=== PATIENT | female | born 1980 | race Caucasian/White ===

== ENCOUNTER 2016-08-10 12:05 | Inpatient (IN) | payer OTHER, MEDICAID ==
[~2016-08-10] VITALS: Ht 165.1 cm; Wt 125.2 kg
[~2016-08-10 12:05] MED LIST: AUGMENTIN 875-1 EACH PO; MIRALAX17 GM/PACK PO; MOTRIN 400MG.400 MG PO; PERCOCET 5/3251 EACH PO
[2016-08-10 12:30] VITALS: BP 153/93
[2016-08-10 13:00] VITALS: BP 153/93
--- NOTE | 2016-08-10 13:18 | ACUTE CARE PROGRESS NOTE (QUA) ---
Progress Notes Subjective Date 08/10/16 Time 1313 Note She ruptured her membranes at home this morning around 11:00. She was in bed and she said she rolled over and began leaking fluid. She went to the bathroom and continued to leak. On examination here she is grossly ruptured. She's had a previous section and was scheduled for another section at the end of this month. As result of that we will go ahead with a this afternoon. She is 36 and 3 weeks gestational age. We discussed the risks of surgery that includes bleeding, infection, injuries to the bowel and bladder. We discussed the rare risk of DVT and the need for DVT prophylaxis. We discussed the possibility that the baby may need to be transferred as result of its early gestational age and the TTN. All questions were answered and consents were signed. Patient/family reports: no complaints Objective Findings Last VS-Temp: B/P: Pulse: Resp: SaO2: Last weight lbs: oz: Kg: Method:Stated Membranes are grossly ruptured Exam General appearance: normal appearance, alert, awake, no acute distress Reviewed: vital signs, lab results Assessment/Plan Problem List 1. Previous section complicating , with delivery 2. Rupture, membranes, premature Patient condition Stable Plan: continue current care, we will go ahead and perform a this afternoon. This inpt stay is expected to cross 2 MNs from start of care Yes Comments: She has not had anything to eat or drink since last night. We will go ahead and perform a for spontaneous rupture of membranes early at 36 weeks. We will also perform a tubal ligation. Consents have been signed and risks have been discussed. at 1313
[2016-08-10 13:25] LABS: HEMOGLOBIN 10.3 g/dL (12.2-16.2); LYMPH # 0.9 K/mm3 (0.7-4.5); LYMPH % 15.6 % (10-50.0)
[2016-08-10 13:56] LABS: ABO BLOOD TYPE O; RH BLOOD TYPE POSITIVE
--- NOTE | 2016-08-10 14:59 | Operative Note ---
Procedure/Operative Record Procedure Date of procedure: 08/10/16 Pre-Op Dx: premature rupture of the membranes, previous classical section, desire for sterilization Post-Op Dx: Same Procedure performed: Repeat lower segment transverse section and bilateral salpingectomy Surgeon: Dr. Ari Bourgeois Hand Upper And Bottom Lacer(s): Dr. Horne Anesthesia: Alex Izquierdo EBL (ml): 600 Clinical note: She is a 36-year-old 3 para 1 aborta 1 who was 36 weeks and 3 days gestational age. She ruptured her membranes at home and was leaking copious amounts of fluid. She's had a previous classical section and as a result of that was offered repeat lower segment transverse section. She also expressed a desire for sterilization. The risks and benefits of surgery were discussed with the patient and her prior to surgery. The irreversibility of tubal ligation was also discussed. Operative findings: She delivered a live-born male child at 2:16 PM in the afternoon of August 10, 2015. The baby was a liveborn male child with Apgars of 8 at 1 minute and 8 at 5 minutes. PH was 7.26. There were adhesions of the omentum to the anterior peritoneum and the LEFT tube as well was adherent to the peritoneum. The rest the pelvis appeared normal. The ovaries appeared normal. Operative note: She was taken to the operating room where epidural anesthesia was found be adequate. She was prepped and draped in normal sterile fashion in the supine position with a leftward tilt. A Silva catheter was in the bladder. A Pfannenstiel skin incision was made with knife then carried through to the underlying layer of fascia with cautery. The fascia was opened in the midline with cautery and extended laterally using Rosenbaum scissors. Prentice clamps were applied to the superior aspect of the fascial incision which was tented up and the underlying rectus muscles dissected off using cautery. The Prentice clamps were then applied to the inferior aspect of the fascial incision which in a similar fashion was tented up and the underlying rectus muscles dissected off using cautery. The rectus muscles were then in the midline, the peritoneum identified, and entered sharply with Metzenbaum scissors. There were some adhesions of the omentum to the peritoneum and this was taken down at the time we took down the peritoneum to the level of the bladder. This incision was then extended superiorly and inferiorly with cautery. We had good visualization of the bladder inferiorly. The bladder peritoneum was then opened in the midline and extended laterally using Metzenbaum scissors. A bladder flap was created digitally. The lower blade of the Sara was inserted so as to push the bladder out of the way. Transverse incision was made through the uterine muscle to the amnion. This incision was then extended laterally using fingers traction. The amnion was entered sharply with knife. The 's head was then delivered atraumatically. This was followed by the anterior shoulder and the rest of the 's body atraumatically. The oropharynx and nasopharynx were bulb suctioned. The infant was then handed off to Dr. Ovalles who assigned Apgars of 8 at 1 minute and 8 at 5 minutes. We then obtained cord blood as well as cord pH. The pH was 7.26. Using gentle traction on the cord and countertraction on the fundus I was able to easily deliver the placenta intact. It had a normal three-vessel cord. The uterus was then cleared of clots and debris and exteriorized from the abdominal cavity. The uterine incision was then closed using running 0 Vicryl suture in a locked fashion. A second layer of the same suture was used to imbricate the first layer. The bladder peritoneum was then closed using running 2-0 Vicryl suture in a locked fashion. We then performed a bilateral stopping injected a. I grasped the RIGHT tube at its fimbriated end and using the widest part of the cautery blade I cauterized along the meso salpinx. The tube was then clamped close to the cornua and the tube was removed. The base of the tube was then tied with 2-0 Vicryl suture. This was similarly performed on the patient's LEFT side. The gutters and cul-de- sac were then cleared of clots and debris and the uterus was returned the abdominal cavity. Once again hemostasis was assured. We then placed 2 large pieces of Interceed along the bladder flap. The peritoneum was grasped with [place] clamps and closed using running 2-0 Vicryl suture. The rectus muscles were then reapproximated using running 0 Vicryl suture. The fascia was closed using running #1 Vicryl suture. The subcutaneous tissues were then irrigated with warm water followed by closure Ajne's fascia using running 2-0 Monocryl suture. The skin was closed with kathleen. Sterile dressings were applied. She tolerated the procedure well and was taken to the recovery room in excellent condition. All sponges minute and needle counts were correct. Estimate a blood loss was approximately 600 mL. Conplications: None Specimens: Products of conception and bilateral fallopian tubes. at 7072
[2016-08-10 15:45] VITALS: BP 128/60
[2016-08-10 17:42] LABS: URINE BILIRUBIN - DIPSTICK NEGATIVE (NEG); URINE BLOOD NEGATIVE (NEG)
[2016-08-10 17:51] LABS: URINE SQUAMOUS CELLS OCC #/hpf (0-5)
[2016-08-10] MEDS ORDERED: METHYLDOPA250 MG PO (20:22)
[2016-08-11 06:49] LABS: HEMOGLOBIN 8.4 g/dL (12.2-16.2)
--- NOTE | 2016-08-11 08:23 | ACUTE CARE PROGRESS NOTE (QUA) ---
Progress Notes Subjective Date 08/11/16 Time 0821 Note She is doing well on her first postoperative day. She is eating and drinking and ambulating. Her pain is reasonably well-controlled. She denies any shortness of breath, chest pain or calf tenderness. Patient/family reports: feeling better, no complaints Objective Findings Last VS-Temp:97.1 B/P:133/69 Pulse:84 Resp:18 SaO2:100 ROOM AIR Last weight lbs:276 oz:0 K.193 Method:Stated Laboratory Tests 08/11/16 0615: Hgb 8.4 L, Hct 26.5 L 08/10/16 1355: Urine Color YELLOW, Urine Appearance CLEAR, Urine pH 6.0, Ur Specific [place] 1.025, Urine Protein NEGATIVE, Urine Ketones 1+ H, Urine Blood NEGATIVE, Urine Nitrate NEGATIVE, Urine Bilirubin NEGATIVE, Urine Urobilinogen 0.2, Ur Leukocyte Esterase NEGATIVE, Urine RBC OCC, Urine WBC OCC, Ur Squamous Epith Cells OCC, Urine Mucus 2+, Urine Glucose NEGATIVE 08/10/16 1300: Cord Blood pH 7.26 L 08/10/16 1245: MCH 27.5 08/10/16 1245: WBC 5.9, RBC 3.75 L, Hgb 10.3 L, Hct 31.1 L, MCV 82.8, RDW 16.4, Plt Count 149, MPV 11.3 H, Gran % 80.1 H, Gran # 4.8, Lymphocytes % 15.6, Monocytes % 3.1, Eosinophils % 1.0, Basophils % 0.1, Lymphocytes # 0.9, Monocytes # 0.2, Eosinophils # 0.1, Basophils # 0.0, PUBS MCHC 33.2, Antibody Screen NEGATIVE, Miscellaneous Test POSITIVE 08/10/16 1218: Membrane Rupture POSITIVE- RUPTURED Exam General appearance: normal appearance, alert, awake, no acute distress Eyes: normal exam ENT: normal exam Neck: normal inspection Respiratory: normal exam, no respiratory distress ABD: normal exam, non-distended Genitourinary: normal voiding & quantity Skin: normal exam, normal color Reviewed: vital signs, lab results Assessment/Plan Problem List 1. Previous section complicating , with delivery 2. Rupture, membranes, premature Patient condition Improving, Stable Plan: continue current care This inpt stay is expected to cross 2 MNs from start of care Yes Comments: She is doing well this morning. We'll plan to send her home in 48 hours. at 0875
--- NOTE | 2016-08-11 10:47 | PHARMACY CLINIC NOTE ---
Patient Demographics Patient Demographics Admission date: 08/10/16 Date: 08/11/16 Time: 1047 Allergies Coded Allergies: No Known Drug Allergies (08/10/16) HEIGHT- FT: 5 IN: 5.00 K.193 VTE General Information Labs: Laboratory Tests 08/11 08/10 0615 1245 Hematology Hgb (12.2 - 16.2 g/dL) 8.4 L 10.3 L Hct (37.0 - 47.0 %) 26.5 L 31.1 L Plt Count (142 - 424 K/mm3) 149 Disclaimer The following section includes nursing documentation that has been pulled in for pharmacy review. VTE prophylaxis NQF [id number] VTE prophylaxis ordered? Yes Type of prophylaxis/treatment: ICD at 1041
[2016-08-11 21:14] VITALS: BP 113/75
--- NOTE | 2016-08-12 07:39 | ACUTE CARE PROGRESS NOTE (QUA) ---
Progress Notes Subjective Date 08/12/16 Time 0738 Note She continues to do very well. She is eating and drinking and ambulating. She is bottlefeeding. Her lochia is normal. Her pain is well-controlled. She denies any shortness of breath, calf pain or chest pain. Patient/family reports: feeling better, no complaints Objective Findings Last VS-Temp:98.0 B/P:113/75 Pulse:84 Resp:20 SaO2:100 ROOM AIR Last weight lbs:276 oz:0 K.193 Method:Stated Exam General appearance: normal appearance, alert, awake, no acute distress Reviewed: vital signs, lab results Assessment/Plan Problem List 1. Previous section complicating , with delivery 2. Rupture, membranes, premature Patient condition Improving, Stable Plan: continue current care This inpt stay is expected to cross 2 MNs from start of care Yes Comments: She continues to do very well post operatively and we will plan to send her home tomorrow. at 0708
[2016-08-12 08:30] VITALS: BP 131/80
[2016-08-12 20:29] VITALS: BP 139/78
--- NOTE | 2016-08-13 07:44 | ACUTE CARE PROGRESS NOTE (QUA) ---
Progress Notes Subjective Date 08/13/16 Time 0742 Note She is doing well this morning. She is eating and drinking and ambulating. She is had a bowel movement. Her pain is well-controlled. Patient/family reports: feeling better, no complaints Objective Findings Last VS-Temp:98.3 B/P:139/78 Pulse:116 Resp:22 SaO2:100 ROOM AIR Last weight lbs:276 oz:0 K.193 Method:Stated Exam General appearance: normal appearance, alert, awake, no acute distress Reviewed: vital signs, lab results Assessment/Plan Problem List 1. Previous section complicating , with delivery 2. Rupture, membranes, premature Patient condition Improving, Stable Plan: continue current care, initiate discharge plan This inpt stay is expected to cross 2 MNs from start of care Yes Comments: She is doing very well this morning we'll plan to send her home today. at 0743
--- NOTE | 2016-08-13 07:46 | Discharge Summary ---
Discharge Summary Admission date: 08/10/16 Discharge date: 08/13/16 Discharge diagnoses: premature rupture the membranes. Previous section. Desire for sterilization. Clinical note: She is a 36-year-old 3 now para 2 aborta 1 who was 36 weeks gestational age. She ruptured her membranes at home and came in to labor and delivery. She's had a previous section and as result of that was offered repeat lower segment transverse section. She also expressed desire for sterilization. We performed a bilateral salpingectomy. Course in hospital: On August 10, 2015 she underwent a repeat lower segment transverse section and bilateral salpingectomy. She has done well and has remained afebrile throughout her hospitalization. She is eating and drinking and ambulating. She delivered a live-born male child at 2:16 PM in the afternoon of August 10, 2016. The baby weighed 7 lbs. 3 oz. with Apgars of 8 at 1 minute and 8 at 5 minutes. He was 19 inches long. She has O positive blood, she is rubella immune and was group B streptococcus negative. Laboratory Tests 08/11/16 0615: Hgb 8.4 L, Hct 26.5 L 08/10/16 1355: Urine Color YELLOW, Urine Appearance CLEAR, Urine pH 6.0, Ur Specific [place] 1.025, Urine Protein NEGATIVE, Urine Ketones 1+ H, Urine Blood NEGATIVE, Urine Nitrate NEGATIVE, Urine Bilirubin NEGATIVE, Urine Urobilinogen 0.2, Ur Leukocyte Esterase NEGATIVE, Urine RBC OCC, Urine WBC OCC, Ur Squamous Epith Cells OCC, Urine Mucus 2+, Urine Glucose NEGATIVE 08/10/16 1300: Cord Blood pH 7.26 L 08/10/16 1245: MCH 27.5 08/10/16 1245: WBC 5.9, RBC 3.75 L, Hgb 10.3 L, Hct 31.1 L, MCV 82.8, RDW 16.4, Plt Count 149, MPV 11.3 H, Gran % 80.1 H, Gran # 4.8, Lymphocytes % 15.6, Monocytes % 3.1, Eosinophils % 1.0, Basophils % 0.1, Lymphocytes # 0.9, Monocytes # 0.2, Eosinophils # 0.1, Basophils # 0.0, PUBS MCHC 33.2, Antibody Screen NEGATIVE, Miscellaneous Test POSITIVE 08/10/16 1218: Membrane Rupture POSITIVE- RUPTURED Plans for ongoing care: She is discharged home to follow-up with me in approximately 2 weeks' time. Discharge medications She'll continue with her vitamins and iron. She was given a prescription for Percocet 5/325, 30 tablets as well as Motrin 400 mg, 40 This. DC/follow-up instructions She was given the usual instructions with respect to limiting her activity, driving and sexual activity. She was given instructions with respect to wound care. Condition at discharge Stable and improved at 0746
[2016-08-13] MEDS ORDERED: MOTRIN 400MG.400 MG PO (07:48)
[2016-08-13] MEDS ORDERED: IRON TABLETS325 MG PO (07:48)
[2016-08-13] MEDS ORDERED: PERCOCET 5/3251 EACH PO (07:48)
[2016-08-13 09:10] VITALS: BP 114/83
== END 2016-08-13 13:50 | disposition home or self-care (01) | DRG 766 ==
LOC: OB 12:05 → OBOUT 12:05 → OB 12:51 → OBOUT 12:51 → OB 12:51
PROVIDERS: Nurse Practitioner Obstetrics & Gynecology
PROC: 0UT70ZZ Resection of Bilateral Fallopian Tubes, Open Approach (ICD-10-PCS; 2016-08-10)
PROC: 10D00Z1 Extraction of Products of Conception, Low, Open Approach (ICD-10-PCS; principal; 2016-08-10 14:00)
DX: O42.913 Preterm premature rupture of membranes, unspecified as to length of time between rupture and onset of labor, third trimester (principal); N85.8 Other specified noninflammatory disorders of uterus; Z3A.36 36 weeks gestation of pregnancy; Z37.0 Single live birth; O34.212 Maternal care for vertical scar from previous cesarean delivery; Z30.2 Encounter for sterilization
CPT/HCPCS: Q2038